=== PATIENT | male | born 1975 | race African-American/Black ===

== ENCOUNTER 2021-12-09 09:15 | Emergency (ER) | payer OTHER ==
[2021-12-09 11:07] LABS: #Eosinphils 0.1 thou/uL (0.0-0.7); #Lymphocytes 1.2 thou/uL (1.20-3.40); #Monocytes 0.6 thou/uL (0.11-0.59); %Basophils 0.3 % (0.0-1.0); %Eosinophils 2.4 % (0.0-10.0); %Monocytes 9.9 % (0.0-10.0); %Neutrophils 67.5 % (42.0-75.0); Hemoglobin 13.5 g/dL (14.0-18.0); Mean Corpuscular HGB CONC 31.1 g/dL (32.0-36.0); Mean Corpuscular Hemoglobin 28.8 pg (27.0-31.0); Mean Corpuscular Volume 92.5 fL (78.0-98.0); Mean Platelet Volume 9.6 fL (7.4-10.4); Platelet Count 142 thou/uL (130-400); RBC Distribution Width 12.7 % (11.5-14.5); White Blood Cell (WBC) Count 5.9 thou/uL (4.8-10.8)
[2021-12-09 11:27] LABS: ALT (SGPT) 23 U/L (8-55); AST (SGOT) 43 U/L (5-34); Alkaline Phosphatase 76 U/L (40-110); Anion Gap 14 mmol/L (10-20); BUN (Urea Nitrogen) 13 mg/dL (8.9-20.6); Bilirubin, Total 0.3 mg/dL (0.2-1.2); CK (CPK) 1251 U/L (30-200); Calc. Creatinine Clearance 0 mL/min (70-130); Calcium 7.6 mg/dL (7.8-10.44); Carbon Dioxide 23 mmol/L (22-29); Chloride 107 mmol/L (98-107); Globulin 3.3 g/dL (2.4-3.5); Glucose 87 mg/dL (70-105); Lipase 20 U/L (8-78); Potassium 4.6 mmol/L (3.5-5.1); Protein, Total 5.3 g/dL (6.0-8.3); Sodium 139 mmol/L (136-145)
== END 2021-12-09 11:45 ==
LOC: EEVIPCON 09:15 → ERS 09:15
DX: R55 Syncope and collapse (principal); S09.90XA Unspecified injury of head, initial encounter; E86.0 Dehydration; R79.89 Other specified abnormal findings of blood chemistry; E03.9 Hypothyroidism, unspecified; E78.5 Hyperlipidemia, unspecified; I10 Essential (primary) hypertension; F17.200 Nicotine dependence, unspecified, uncomplicated; Z79.82 Long term (current) use of aspirin
CPT/HCPCS: 36415; 36416; 70450; 72125; 80053; 82550; 83690; 84484; 85025; 93005

== ENCOUNTER 2022-01-04 00:50 | Inpatient (IN) | payer OTHER ==
[2022-01-04] MEDS ORDERED: Morphine 4 MG/ML VIAL ONE (04:53)
[2022-01-04] MEDS ORDERED: Ondansetron PF 4 MG/2 ML Vial ONE (04:53)
[2022-01-04 05:25] LABS: SARS-CoV-2 NAA Rapid Test Not Detected (NotDetected)
[2022-01-04] MEDS ORDERED: Senokot S 8.6-50 MG TAB PO PRN (07:39)
[2022-01-04] MEDS ORDERED: Ondansetron PF 4 MG/2 ML Vial IVP PRN (07:39)
[2022-01-04] MEDS ORDERED: Guaifenesin DM 100-10/5 ML UDCUP PO PRN (07:39)
[2022-01-04] MEDS ORDERED: Furosemide 100 MG/10 ML VIAL SLOW IVP SCH (09:15)
[2022-01-04] MEDS: Famotidine 20 MG TAB PO SCH ×2 (09:22→21:06)
[2022-01-04 09:27] VITALS: BMI 41.6
[2022-01-04 09:46] LABS: INR-International Normal Ratio 1.8; Prothrombin Time 21.3 sec (12.0-14.7)
[2022-01-04] MEDS: HYDROcodone/Acetaminophen 5/325 mg Tablet PO PRN ×3 (11:38→22:53)
[2022-01-04] MEDS ORDERED: FLU VACC QS2021-22(6MOS UP)/PF 60 MCG/0.5 ML SYRINGE IM ONE (14:00)
[2022-01-04] MEDS: Warfarin Sodium 10 MG TAB PO SCH (18:36)
[2022-01-04] MEDS: Atorvastatin Calcium 40 MG TAB PO SCH (21:06)
[2022-01-04] MEDS: Docusate 100 MG CAP PO SCH (21:06)
[2022-01-04] MEDS: levETIRAcetam 500 MG TAB PO SCH (21:06)
[2022-01-05 05:29] LABS: #Eosinphils 0.2 thou/uL (0.0-0.7); #Monocytes 0.5 thou/uL (0.11-0.59); #Neutrophils 3.3 thou/uL (1.40-6.50); %Basophils 0.2 % (0.0-1.0); %Eosinophils 3.1 % (0.0-10.0); %Lymphocytes 20.2 % (21.0-51.0); %Monocytes 9.6 % (0.0-10.0); %Neutrophils 66.9 % (42.0-75.0); Hemoglobin 12.4 g/dL (14.0-18.0); Mean Corpuscular HGB CONC 30.2 g/dL (32.0-36.0); Mean Corpuscular Hemoglobin 28.3 pg (27.0-31.0); Mean Corpuscular Volume 93.8 fL (78.0-98.0); Mean Platelet Volume 8.7 fL (7.4-10.4); Platelet Count 171 thou/uL (130-400); RBC Distribution Width 12.5 % (11.5-14.5); Red Blood Cell (RBC) Count 4.38 mill/uL (4.70-6.10); White Blood Cell (WBC) Count 4.9 thou/uL (4.8-10.8)
[2022-01-05 05:40] LABS: INR-International Normal Ratio 1.7; Prothrombin Time 20.5 sec (12.0-14.7)
[2022-01-05 06:36] LABS: Anion Gap 9 mmol/L (10-20); BUN (Urea Nitrogen) 16 mg/dL (8.9-20.6); Calc. Creatinine Clearance 121 mL/min (70-130); Calcium 7.8 mg/dL (7.8-10.44); Carbon Dioxide 26 mmol/L (22-29); Chloride 111 mmol/L (98-107); Glucose 91 mg/dL (70-105); Potassium 4.8 mmol/L (3.5-5.1); Sodium 141 mmol/L (136-145)
[2022-01-05] MEDS ORDERED: Heparin 25,000 units/D5W 500 ML IVPB SCH (08:45)
[2022-01-05] MEDS ORDERED: Heparin 10,000 UNITS/ 10 ML VIAL SLOW IVP SCH (08:45)
[2022-01-05] MEDS: levETIRAcetam 500 MG TAB PO SCH ×2 (08:55→20:44)
[2022-01-05] MEDS: Famotidine 20 MG TAB PO SCH ×2 (08:55→20:43)
[2022-01-05] MEDS: Docusate 100 MG CAP PO SCH ×2 (08:59→20:43)
[2022-01-05 13:13] LABS: Hemoglobin 12.9 g/dL (14.0-18.0); Platelet Count 149 thou/uL (130-400)
[2022-01-05] MEDS: Warfarin Sodium 10 MG TAB PO SCH (17:17)
[2022-01-05] MEDS: HYDROcodone/Acetaminophen 5/325 mg Tablet PO PRN (17:20)
[2022-01-05] MEDS: Atorvastatin Calcium 40 MG TAB PO SCH (20:44)
[2022-01-05 21:58] LABS: PTT Greater than 250.0 sec (22.9-36.1)
[2022-01-06 02:00] LABS: PTT Greater than 250.0 sec (22.9-36.1)
[2022-01-06 03:29] LABS: INR-International Normal Ratio 2.5; Prothrombin Time 27.1 sec (12.0-14.7)
[2022-01-06 03:30] LABS: PTT 107.5 sec (22.9-36.1)
[2022-01-06] MEDS: Docusate 100 MG CAP PO SCH (08:39)
[2022-01-06] MEDS: levETIRAcetam 500 MG TAB PO SCH (08:39)
[2022-01-06] MEDS: HYDROcodone/Acetaminophen 5/325 mg Tablet PO PRN (08:39)
[2022-01-06] MEDS: Famotidine 20 MG TAB PO SCH (08:40)
[2022-01-06 11:48] LABS: PTT 123.7 sec (22.9-36.1)
[2022-01-06 12:00] VITALS: TEMP 98.6
[2022-01-06 12:01] VITALS: BP 151/91
== END 2022-01-06 13:39 | DRG 300 ==
LOC: SUATTDRO 00:50 → ERS 00:50 → MSONC 06:41 → EEVIPCON 06:41 → OBSVTOIN 01-05 10:34
PROVIDERS: ADMIT Hospitalist; ATTEND Hospitalist
DX: I82.411 Acute embolism and thrombosis of right femoral vein (principal); N17.9 Acute kidney failure, unspecified; Z68.41 Body mass index [BMI] 40.0-44.9, adult; Z20.822 Contact with and (suspected) exposure to COVID-19; I89.0 Lymphedema, not elsewhere classified; E66.01 Morbid (severe) obesity due to excess calories; E03.9 Hypothyroidism, unspecified; I10 Essential (primary) hypertension; E78.5 Hyperlipidemia, unspecified; Z91.041 Radiographic dye allergy status; Z91.010 Allergy to peanuts; Z86.73 Personal history of transient ischemic attack (TIA), and cerebral infarction without residual deficits; Z87.891 Personal history of nicotine dependence; Z79.02 Long term (current) use of antithrombotics/antiplatelets; Z79.82 Long term (current) use of aspirin; Z79.899 Other long term (current) drug therapy
CPT/HCPCS: 36415; 36416; 80048; 83880; 85025; 85610; 85730; 86140; 87070; 87205; 93970; 96374; 96375; 96376; G0378; J1644; J1940; J2270; J2405; U0002